=== PATIENT | female | born 1965 | race Caucasian/White ===

== ENCOUNTER 2017-04-24 13:16 | Emergency (ER) | payer MEDICARE, OTHER ==
[~2017-04-24 13:16] MED LIST: ABILIFY10 MG PO; CYMBALTA30 MG PO; ELAVIL25 MG PO; FLAGYL500 MG PO; FLONASE 0.05% N16 GM; LEVAQUIN500 MG PO; LEVOCETIRIZINE D5 MG PO; NEURONTIN800 MG PO; OXYCODONE-ACET1 EAC1 PO; PRILOSEC20 MG PO; ZESTRIL40 MG PO
== END 2017-04-24 15:52 | disposition home or self-care (01) ==
LOC: ER 13:16
DX: M54.5 Low back pain (principal); M25.551 Pain in right hip; M48.06 Spinal stenosis, lumbar region; W10.9XXA Fall (on) (from) unspecified stairs and steps, initial encounter; Y92.009 Unspecified place in unspecified non-institutional (private) residence as the place of occurrence of the external cause; Z79.899 Other long term (current) drug therapy
CPT/HCPCS: 72128; 72131; 73700; 99283; 99283-25